=== PATIENT | female | born 1940 | race Caucasian/White ===

== ENCOUNTER → 2024-01-24 10:46 | Outpatient (REF) | payer MEDICARE, OTHER, SELFPAY | LOC: RAD 10:46 | PROVIDERS: ATTENDING PHYSICIAN Surgery Vascular Surgery; FAMILY PHYSICIAN Nurse Practitioner Adult Health | DX: I77.9 Disorder of arteries and arterioles, unspecified (principal) | CPT/HCPCS: 93922; 93925 ==

== ENCOUNTER → 2024-01-31 12:44 | Outpatient (REF) | payer MEDICARE, OTHER, SELFPAY | LOC: DHCBS MAIN 12:44 | PROVIDERS: ATTENDING PHYSICIAN Internal Medicine Cardiovascular Disease; FAMILY PHYSICIAN Nurse Practitioner Adult Health | DX: I25.10 Atherosclerotic heart disease of native coronary artery without angina pectoris (principal); I25.5 Ischemic cardiomyopathy | CPT/HCPCS: 93306 ==

== ENCOUNTER → 2024-08-15 13:47 | Outpatient (REF) | payer MEDICARE, OTHER, SELFPAY | LOC: RAD 13:47 | PROVIDERS: ATTENDING PHYSICIAN Surgery Vascular Surgery; FAMILY PHYSICIAN Nurse Practitioner Adult Health | DX: I77.9 Disorder of arteries and arterioles, unspecified (principal) | CPT/HCPCS: 93922; 93925 ==

== ENCOUNTER → 2025-03-05 10:47 | Outpatient (REF) | payer MEDICARE, OTHER, SELFPAY | LOC: RAD 10:47 | PROVIDERS: ATTENDING PHYSICIAN Surgery Vascular Surgery; FAMILY PHYSICIAN Nurse Practitioner | DX: I65.23 Occlusion and stenosis of bilateral carotid arteries (principal); I73.9 Peripheral vascular disease, unspecified | CPT/HCPCS: 93880; 93922 ==

== ENCOUNTER → 2025-09-17 10:59 | Outpatient (REF) | payer MEDICARE, OTHER, SELFPAY | LOC: RAD 10:59 | PROVIDERS: ATTENDING PHYSICIAN Surgery Vascular Surgery; FAMILY PHYSICIAN Nurse Practitioner | DX: I73.9 Peripheral vascular disease, unspecified (principal); I65.23 Occlusion and stenosis of bilateral carotid arteries | CPT/HCPCS: 93922 ==

== ENCOUNTER 2025-10-06 21:06 | Emergency (ER) | payer MEDICARE, OTHER, SELFPAY ==
[2025-10-06 21:10] VITALS: BP 173/92
[2025-10-06 21:30] LABS: Hematocrit 39.7 % (37.0-47.0); Hemoglobin 12.9 g/dL (12.0-16.0); Mean Corp Hgb Conc. 32.5 g/dL (33.0-37.0); Mean Corpuscular Volume 92.3 fL (81.0-99.0); Nucleated Red Blood Cells % 0 %; Platelet Count 282 10^3/uL (130-400); Red Cell Dist. Width 13.7 % (11.5-14.5)
[2025-10-06 21:43] LABS: INR 0.98; PT 13.1 Sec (11.4-14.6)
[2025-10-06 21:44] LABS: APTT 32.2 Sec (23.4-35.0)
[2025-10-06 21:47] LABS: ALT (SGPT) 15 U/L (0-35); AST (SGOT) 23 U/L (14-36); Albumin 4.2 g/dl (3.5-5.0); Alkaline Phosphatase 88 U/L (38-126); Blood Urea Nitrogen 30 mg/dl (7-17); Calcium 9.5 mg/dl (8.4-10.2); Carbon Dioxide 31 mmol/L (22-30); Chloride 99 mmol/L (98-107); Glucose 145 mg/dl (70-99); Potassium 4.7 mmol/L (3.5-5.1); Sodium 135 mmol/L (135-145); Total Protein 7.5 g/dl (6.3-8.2); eGFR 49.55
[2025-10-06 22:20] VITALS: BP 127/76
[2025-10-06 23:00] VITALS: BP 141/56; BMI 29.4
--- NOTE | 2025-10-06 23:04 | ED.GENMED ---
History of Present Illness
<Pam Booker MD, Resident - Last Filed: 10/07/25 01:40>
General
Chief Complaint: Vomiting Blood
Source: patient and family
Exam Limitations: none
Time Seen by Provider: 10/06/25 23:03
Nursing documentation reviewed up to this point in time: agreed with
History of Present Illness
History of Present Illness:
84-year-old F with a history of CAD ([place] x 2, s/p stenting), CVA (on Plavix, aspirin), bilateral lower extremity PAD, and diverticulitis who presents with coughing up blood this evening.
Per patient, she was relaxing in bed today around 8 PM when she felt the urge to cough. She coughed up a clot of blood, tissue had bright red blood on it. This happened 4 times, then she called her daughter and they came to the ED. On the drive
here, the patient had minimal coughing with some red speckling on the tissue, and her last episode of coughing with blood was today during EKG and intake in the ED. States that there was some bright red speckling on tissue at that point in time.
While she was coughing at home, patient had a sensation of tightness/discomfort in her neck that felt like she was straining. She also endorses a sensation of straining/tightness and a sore pain in her lower abdomen. No burning epigastric pain.
Patient denies any pain in her chest. Denies any trouble breathing. No history of asthma or GERD, not taking any PPIs. Patient endorses a recent cold for the last week, during which she had rhinorrhea and malaise. However, she did not have
significant coughing during this time. Denies any nausea/vomiting. Denies any diarrhea/constipation, denies any blood in stool. Patient is on Plavix and aspirin, which she takes daily. Denies any recent changes to diet, denies any changes to
medications. Was on antibiotics about 2 months ago for recurrent UTIs. Denies any recent swelling of lower extremities.
Past History
<Pam Booker MD, Resident - Last Filed: 10/07/25 01:40>
Past History
ED Past Medical History: CAD, HTN, Hypercholesterolemia, [place] (X 2), Hypothyroidism and Other (TIA, arthritis, cataracts, GI bleeding lower. UTI, Anemia, )
ED Past Surgical History: Cardiac (Stents X 2), (X 2) and Other (Bilateral carotid endarterectomy, hernia repair, cataracts)
Social History
Tobacco: Non-smoker
Alcohol: None
Drug: None
Personal:
Living: alone
Employment: Retired
Family History
Family History: CAD
Review of Systems
<Pam Booker MD, Resident - Last Filed: 10/07/25 01:40>
Review of Systems
All Other Systems: ROS reviewed and negative except as documented in HPI and ROS
Constitutional: Reports no symptoms
EENT: Reports sore throat and runny nose
Respiratory: Reports cough
Cardiac: Reports no symptoms
ABD/GI: Reports abdominal pain
: Reports no symptoms
Musculoskeletal: Reports no symptoms
Skin: Reports no symptoms
Neurological: Reports no symptoms
Psychiatric: Reports no symptoms
Phy Exam
<Pam Booker MD, Resident - Last Filed: 10/07/25 01:40>
General Physical Exam
General Presentation: well appearing
General age: appears stated age
General Skin: warm and dry
General Habitus: normal
General Mental: alert
General Hydration: appears well hydrated
ENT Exam
ENT Exam: pharynx normal (No visible excoriations, sources of bleeding; no tonsillitis or erythema), neck supple (No pain to palpation over anterior lateral neck), normocephalic and other (No cervical lymphadenopathy)
Cardiovascular Exam
Cardiovascular Exam: regular rate/rhythm and no edema
Heart Sounds: normal
Pulmonary Exam
Pulmonary Exam: lungs clear, no respiratory distress, no crackles and no wheezing
Gastrointestinal Exam
Gastrointestinal Exam: soft, non distended and tender (Tenderness to palpation in left lower quadrant, patient states that this has been there for a while)
Neurological Exam
Neurological Exam: alert and speech normal
Musculoskeletal Exam
Musculoskeletal Exam: no edema
Skin Exam
Skin Exam: normal color and warm/dry
Psychiatric Exam
Psychiatric Exam: normal mood/affect
Course
<Pam Booker MD, Resident - Last Filed: 10/07/25 01:40>
Orders/Labs/Results
Orders:
Orders
10/06/25 21:12
Electrocardiogram (*1) Urgent
Reason for Study: Vertigo / Dizzy
10/06/25 21:13
EKG- Treatment ONCE
10/06/25 21:18
Type+Screen Urgent
Complete Blood Count/With Diff Urgent
Comprehensive Metabolic Panel Urgent
PT/INR [Prothrombin Time] Urgent
Is patient on Coumadin/Warfarin?: No
Comment: [email or web address]
PTT Urgent
10/06/25 23:40
CT Chest PE Study Urgent
Comment:
Reason For Exam: hemoptysis
Abnormal Lab Results
10/06/25
21:18
MCHC 32.5 L g/dL
(33.0-37.0)
Absolute Monos (auto) 0.7 H 10^3/uL
(0.1-0.6)
Carbon Dioxide 31 H mmol/L
(22-30)
BUN 30 H mg/dl
(7-17)
Creatinine 1.1 H mg/dL
(0.6-1.0)
Glucose 145 H mg/dl
(70-99)
10/06/25 21:18
10/06/25 21:18
Vital Signs
Initial and Last Documented VS:
Initial Vital Signs
Temp Pulse Resp BP Pulse Ox
97.7 F 101 16 173/92 95
10/06/25 21:10 10/06/25 21:10 10/06/25 21:10 10/06/25 21:10 10/06/25 21:10
Last Documented Vital Signs
Temp Pulse Resp BP Pulse Ox
97.7 F 84 21 141/56 95
10/06/25 21:10 10/06/25 23:00 10/06/25 23:00 10/06/25 23:00 10/06/25 23:07
<Iliana Caicedo, DO - Last Filed: 10/07/25 01:41>
Orders/Labs/Results
Orders:
Orders
10/06/25 21:12
Electrocardiogram (*1) Urgent
Reason for Study: Vertigo / Dizzy
10/06/25 21:13
EKG- Treatment ONCE
10/06/25 21:18
Type+Screen Urgent
Complete Blood Count/With Diff Urgent
Comprehensive Metabolic Panel Urgent
PT/INR [Prothrombin Time] Urgent
Is patient on Coumadin/Warfarin?: No
Comment: [email or web address]
PTT Urgent
10/06/25 23:40
CT Chest PE Study Urgent
Comment:
Reason For Exam: hemoptysis
Abnormal Lab Results
10/06/25
21:18
MCHC 32.5 L g/dL
(33.0-37.0)
Absolute Monos (auto) 0.7 H 10^3/uL
(0.1-0.6)
Carbon Dioxide 31 H mmol/L
(22-30)
BUN 30 H mg/dl
(7-17)
Creatinine 1.1 H mg/dL
(0.6-1.0)
Glucose 145 H mg/dl
(70-99)
10/06/25 21:18
10/06/25 21:18
Vital Signs
Initial and Last Documented VS:
Initial Vital Signs
Temp Pulse Resp BP Pulse Ox
97.7 F 101 16 173/92 95
10/06/25 21:10 10/06/25 21:10 10/06/25 21:10 10/06/25 21:10 10/06/25 21:10
Last Documented Vital Signs
Temp Pulse Resp BP Pulse Ox
97.7 F 84 21 141/56 95
10/06/25 21:10 10/06/25 23:00 10/06/25 23:00 10/06/25 23:00 10/06/25 23:07
<Pam Booker MD, Resident - Last Filed: 10/07/25 01:40>
MDM/Problems Addressed
Differential Diagnosis Includes:
DDx:
Likely superficial esophageal abrasion/erosion in the setting of recent URI/rhinorrhea/inflammation and recent dry weather
PE remains in the differential for hemoptysis, although unlikely given lack of lower extremity swelling, lack of recent prolonged sedentary period, lack of shortness of breath, lack of tachycardia, O2 sat
Low concern for any esophageal perforation, low concern for active ongoing UGI bleed
MDM/Problems Addressed:
- CBC, CMP
- EKG
- CT PE
<Pam Booker MD, Resident - Last Filed: 10/07/25 01:40>
*Pulse Oximetry
SaO2: 95
Oxygen Mode of Delivery: Room air
Patient hypoxic: no
*Critical Care Note
Total Time (30-74mins, 75-104mins- exclusive of procedures): Not Applicable
<Pam Booker MD, Resident - Last Filed: 10/07/25 01:40>
Update Note
Update Note:
EKG w RBBB, largely unchanged from prior
12:25am
Notified by RN that patient began coughing up more blood after getting back from CT scan. Went to check on patient, patient well-appearing and stable. Coughing episode had subsided. Patient with bucket full of tissues beside her. Tissues were
not soaked with blood, each had a 1 to 2 cm spot of bright red blood on them. No clots or free fluid visualized in the bucket.
1:[address] PE without evidence of clot
Etiology likely inflammation in the setting of recent cold, patient can be discharged home with precautions and supportive care
ED Attending Note
<Pam Booker MD, Resident - Last Filed: 10/07/25 01:40>
-
Portions of this chart may have been created with voice recognition software.� Occasional wrong word or��sound alike� substitutions may have occurred due to the inherent limitations of voice recognition software.
<Iliana Caicedo DO - Last Filed: 10/07/25 01:41>
ED Attending Note
Patient seen and examined by attending physician: Yes
I performed the substantive portion of visit, reviewed & personally made and approve the management plan that is documented in note by myself or THALIA.: Yes
I performed a history and physical exam of patient and discussed management with resident, I reviewed resident's note and agree with documented findings and plan of care.: Yes
ED Attending Note:
84-year-old female with prior history of CVA, CAD status post 4 stents on Plavix and aspirin, peripheral vascular disease presenting to the emergency department with concern for hemoptysis patient notes that prior to arrival, she was lying in bed
and had about 4 episodes of coughing with production of bright red blood. Denies vomiting component. Reports that she has not been coughing. Last week did have a URI, with some congestion, throat irritation, mild cough. Denies any present
dyspnea or chest pain. Denies abdominal pain or GI complaints. Reports that she recently saw her vascular surgeon a few weeks ago, notes stable peripheral vascular disease. Vital signs are significant for hypertension and mild tachycardia.
On exam, patient is resting comfortably, no acute distress. Reports that the symptoms have improved since arrival to the hospital. Unremarkable cardiac and pulmonary exam. Patient nontoxic. Suspect possible bronchial irritation. Lower suspicion
for PE. However, in the setting of hemoptysis, will obtain CT chest for rule out. EKG obtained on arrival, nonischemic. Labs obtained prior to my assessment, normal hemoglobin. Will continue to monitor
00:30 - Upon return from CT, patient did have episode of hemoptysis, small production of blood. Remains stable and comfortable
01:40 - CT negative for acute process. On reassessment patient is resting comfortably with stable vital signs. At this time again without concern for serious pathology to patient's symptoms. Feel stable for discharge. Advised close follow-up
with her primary care doctor and monitoring for worsening hemoptysis or any development of hematemesis. Return precautions discussed with patient and daughter verbalized understanding
Discharge Plan
Departure
Patient Disposition: Home (Routine Discharge)
Date of Disposition: 10/07/25
Time of Disposition: 01:36
Patient with high blood pressure during this ER visit?: No
Condition: Good
Covid-19: Not Applicable
Discharge Problem:
Cough with hemoptysis
Prescriptions:
No Action
aspirin 81 MG tablet,delayed release (DR/EC)
81 mg PO DAILY
carvedilol 6.25 MG tablet
6.25 mg PO BID
clopidogrel 75 MG tablet
75 mg PO DAILY
metformin 500 mg Tablet
500 mg PO QPM
lisinopril 10 mg Tablet
10 mg PO DAILY
furosemide 20 mg Tablet
10 mg PO DAILY
Repatha Syringe
1 dose IM Q2W
acetaminophen [Tylenol] 325 mg Tablet
650 mg PO Q6H PRN (Reason: joint pain)
cholecalciferol (vitamin D3) [Vitamin D3] 50 mcg (2,000 unit) Capsule
50 mcg PO DAILY
magnesium chelate, malate 125 mg magnesium Capsule
180 mg PO DAILY
amoxicillin-pot clavulanate 875-125 mg tablet
1 tab PO BID Qty: 14 0RF
Referrals:
NONE,* [Active, Internal Medicine]
Activity Restrictions/Additional Instructions:
You were seen in the ED today for coughing with blood. Your blood testing did not show any anemia from blood loss. A CT scan of your lungs did not find anything concerning for a blood clot in the lungs, an abnormality in blood vessels in the
lungs, or any type of mass that could be causing bleeding. The amount of blood in your cough is likely due to inflammation of the airways/mucous membranes following your recent cold, likely viral. This will probably resolve on its own in time.
Try to keep you in your bedroom more humidified, not dry. You should follow-up with your primary care provider in 1 to 2 weeks.
Please return to the ED if you experience a significant increase in volume of blood that you are coughing up, have severe chest pain, have lightheadedness or any episodes of fainting.
Interventions
Interventions:
*Risk Screen - Suicide Last Done: 10/06/25 21:12
*General Assessment Last Done: 10/06/25 23:00
*Neglect/Abuse Screening Last Done: 10/06/25 21:12
*ED COVID-19 Vaccine History Last Done: 10/06/25 23:00
*ED Influenza Vaccine History Last Done: 10/06/25 23:00
[facility] Fall Risk Assessment Tool Last Done: 10/06/25 23:00
MD-Kxeulw-Arlvvbqeoh Assessment Last Done: 10/06/25 23:07
ED- Cardiac Assessment Last Done: 10/06/25 23:00
ED- Pulmonary Assessment Last Done: 10/06/25 23:00
Discharge Date and Time
Print Language: SETSWANA
[2025-10-07] VITALS: BP 154/61
== END 2025-10-07 02:28 | disposition home or self-care (01) ==
LOC: EMR 21:06
PROVIDERS: Emergency Medicine; EMERGENCY PHYSICIAN Student in an Organized Health Care Education/Training Program
DX: R04.2 Hemoptysis (principal); I45.10 Unspecified right bundle-branch block; R00.0 Tachycardia, unspecified; I25.10 Atherosclerotic heart disease of native coronary artery without angina pectoris; I73.9 Peripheral vascular disease, unspecified; I10 Essential (primary) hypertension; E78.00 Pure hypercholesterolemia, unspecified; I25.2 Old myocardial infarction; E03.9 Hypothyroidism, unspecified; M19.90 Unspecified osteoarthritis, unspecified site; Z79.02 Long term (current) use of antithrombotics/antiplatelets; Z79.82 Long term (current) use of aspirin; Z95.5 Presence of coronary angioplasty implant and graft; Z86.73 Personal history of transient ischemic attack (TIA), and cerebral infarction without residual deficits; Z82.49 Family history of ischemic heart disease and other diseases of the circulatory system
CPT/HCPCS: 99284; 71275; 80053; 85025; 85610; 85730; 86850; 86900; 86901; 93005; Q9967

== ENCOUNTER 2025-10-07 09:08 | Inpatient (IN) | payer MEDICARE, SELFPAY ==
[2025-10-07] VITALS (19 sets, daily range): BP systolic 106–161; BP diastolic 56–92; PULSE 84–98; BMI 29.6
--- NOTE | 2025-10-07 07:27 | ED.GENMED ---
History of Present Illness
<Biju Quinn PA-C - Last Filed: 10/07/25 10:12>
General
Chief Complaint: Vomiting Blood
Source: patient and family
Time Seen by Provider: 10/07/25 07:10
History of Present Illness
History of Present Illness:
84-year-old female with past medical history of CVA, CAD status post 2 previous MIs, previous lower GI bleeding presenting back to the emergency department after being evaluated overnight for reported hemoptysis, had a negative workup including
normal labs and CTA PE study, went home and drank a little bit of water and shortly after drinking the water has had persistent hematemesis which is what prompted daughter to bring patient back to the ER. Patient reports there is no pain with this.
She notes that she did have a bowel movement and that it appeared normal in color when she wiped. She denies any current pain, current nausea, shortness of breath, lightheadedness, dizziness, weakness or any other concerns. Patient does take
Plavix. No other concerns at this time
Past History
<Biju Quinn PA-C - Last Filed: 10/07/25 10:12>
Past History
ED Past Medical History: CAD, HTN, Hypercholesterolemia, [place] (X 2), Hypothyroidism and Other (TIA, arthritis, cataracts, GI bleeding lower. UTI, Anemia, )
ED Past Surgical History: Cardiac (Stents X 2), (X 2) and Other (Bilateral carotid endarterectomy, hernia repair, cataracts)
Social History
Tobacco: Non-smoker
Alcohol: None
Drug: None
Personal:
Living: alone
Employment: Retired
Family History
Family History: CAD
Review of Systems
<Biju Quinn PA-C - Last Filed: 10/07/25 10:12>
Review of Systems
All Other Systems: ROS reviewed and negative except as documented in HPI and ROS
Phy Exam
<Biju Quinn PA-C - Last Filed: 10/07/25 10:12>
Physical Exam
Physical Exam:
GENERAL: Alert , in no apparent distress
HEAD: Normocephalic atraumatic
EYE: conjunctiva clear
NECK: Supple
ENT: o/p clr, mmm.
CARDIAC: Regular rate and rhythm
LUNGS: Clear breath sounds bilaterally, no acute respiratory distress, no wheezes/rales/rhonchi
ABDOMEN: Soft, nontender, nondistended
RECTAL EXAM: Chaperoned by ED RN Katja: Light brown stool, heme-negative
NEUROLOGICAL: Alert and oriented
SKIN: Warm and dry, skin intact.
MUSCULOSKELETAL: well perfused.
PSYCH: Normal and appropriate interaction.
Scores
<Biju Quinn PA-C - Last Filed: 10/07/25 10:12>
Heart Failure Risk
Heart Failure Risk Score: Not Applicable
Heart Score for Chest Pain Patients
STEMI patient?: Not applicable
Withdrawal Assessment of Alcohol
Withdrawal Assessment Completed?: Not applicable
Course
<Biju Quinn PA-C - Last Filed: 10/07/25 10:12>
Orders/Labs/Results
Orders:
Orders
10/07/25 Breakfast
NPO
Allow oral meds: No
Allow clear liquids: No
NPO with Ice Chips: Yes
10/07/25 07:10
Pantoprazole [Protonix IV] 80 mg IV NOW STA
10/07/25 07:29
Complete Blood Count/With Diff Urgent
Comprehensive Metabolic Panel Urgent
10/07/25 08:06
Admit/Transfer Patient As Directed
Co-Sign Provider:
Level of Care: Inpatient admission
Assign to:: Medical/Surgical
Physician / Group: hospitalist
Diagnosis: GI bleed
Reason for Hospitalization: GI bleed
Expected length of stay greater than two midnights?: Yes
ELOS- Estimated Length of Stay in days: 3
I certify the patient meets the requirements for IP care: Yes
10/07/25 08:07
PRN Pain Medication Management As Directed
May give lesser potent ordered pain med per pt: Yes
preference::
Protocol:: Medication orders for pain may be administered in a
manner that supports deferring to patient preference
when the pt is:
- Requesting an ordered lesser potent pain medication.
Least to most potent pain medications are defined
as: acetaminophen < NSAID < tramadol < opioids
(morphine, oxycodone, hydromorphone).
- Requesting a lesser dose of the same medication IF
ORDERED.
- Requesting a less intrusive route of administration
if both routes are prescribed by the provider (PO <
IV).
10/07/25 08:08
Code Status As Directed
Resuscitation Status: Full Code
10/07/25 08:50
GASTROINTESTINAL CONSULT Routine
Consulting Provider: Naseem Daily
Was physician already notified: Yes
10/07/25 13:30
H&H Q6H
10/07/25 19:30
H&H Q6H
10/08/25 01:30
H&H Q6H
Abnormal Lab Results
10/07/25
07:29
RBC 4.08 L 10^6/uL
(4.20-5.40)
MCHC 32.5 L g/dL
(33.0-37.0)
Absolute Monos (auto) 0.7 H 10^3/uL
(0.1-0.6)
Lymphocytes % 16.5 L %
(20.5-51.1)
BUN 27 H mg/dl
(7-17)
Glucose 124 H mg/dl
(70-99)
10/07/25 08:50
10/07/25 07:29
Vital Signs
Initial and Last Documented VS:
Initial Vital Signs
Temp Pulse Resp BP Pulse Ox
97.9 F 90 22 152/68 96
10/07/25 06:45 10/07/25 06:45 10/07/25 06:45 10/07/25 06:45 10/07/25 06:45
Last Documented Vital Signs
Temp Pulse Resp BP Pulse Ox
97.9 F 84 24 139/65 96
10/07/25 06:45 10/07/25 09:15 10/07/25 09:15 10/07/25 09:00 10/07/25 07:32
<Albert Shrestha, DO - Last Filed: 10/07/25 08:07>
Orders/Labs/Results
Orders:
Orders
10/07/25 Breakfast
NPO
Allow oral meds: No
Allow clear liquids: No
NPO with Ice Chips: Yes
10/07/25 07:10
Pantoprazole [Protonix IV] 80 mg IV NOW STA
10/07/25 07:29
Complete Blood Count/With Diff Urgent
Comprehensive Metabolic Panel Urgent
10/07/25 08:06
Admit/Transfer Patient As Directed
Co-Sign Provider:
Level of Care: Inpatient admission
Assign to:: Medical/Surgical
Physician / Group: hospitalist
Diagnosis: GI bleed
Reason for Hospitalization: GI bleed
Expected length of stay greater than two midnights?: Yes
ELOS- Estimated Length of Stay in days: 3
I certify the patient meets the requirements for IP care: Yes
10/07/25 08:07
PRN Pain Medication Management As Directed
May give lesser potent ordered pain med per pt: Yes
preference::
Protocol:: Medication orders for pain may be administered in a
manner that supports deferring to patient preference
when the pt is:
- Requesting an ordered lesser potent pain medication.
Least to most potent pain medications are defined
as: acetaminophen < NSAID < tramadol < opioids
(morphine, oxycodone, hydromorphone).
- Requesting a lesser dose of the same medication IF
ORDERED.
- Requesting a less intrusive route of administration
if both routes are prescribed by the provider (PO <
IV).
10/07/25 08:08
Code Status As Directed
Resuscitation Status: Full Code
10/07/25 08:50
GASTROINTESTINAL CONSULT Routine
Consulting Provider: Naseem Daily
Was physician already notified: Yes
10/07/25 13:30
H&H Q6H
10/07/25 19:30
H&H Q6H
10/08/25 01:30
H&H Q6H
Abnormal Lab Results
10/07/25
07:29
RBC 4.08 L 10^6/uL
(4.20-5.40)
MCHC 32.5 L g/dL
(33.0-37.0)
Absolute Monos (auto) 0.7 H 10^3/uL
(0.1-0.6)
Lymphocytes % 16.5 L %
(20.5-51.1)
BUN 27 H mg/dl
(7-17)
Glucose 124 H mg/dl
(70-99)
10/07/25 08:50
10/07/25 07:29
Vital Signs
Initial and Last Documented VS:
Initial Vital Signs
Temp Pulse Resp BP Pulse Ox
97.9 F 90 22 152/68 96
10/07/25 06:45 10/07/25 06:45 10/07/25 06:45 10/07/25 06:45 10/07/25 06:45
Last Documented Vital Signs
Temp Pulse Resp BP Pulse Ox
97.9 F 84 24 139/65 96
10/07/25 06:45 10/07/25 09:15 10/07/25 09:15 10/07/25 09:00 10/07/25 07:32
<Biju Quinn PA-C - Last Filed: 10/07/25 10:12>
MDM/Problems Addressed
Differential Diagnosis Includes:
Gastric ulcer/peptic ulcer disease
Variceal bleeding
Gastritis
Given CTA done last night I do not have concern for pulmonary emboli
There was no sign of pneumonia on the CT of the chest
Anemia
Malignancy
MDM/Problems Addressed:
84-year-old female presenting to the ER after being evaluated last night for hemoptysis, presents back to the ER now for reported hematemesis. She is hemodynamically stable. On Plavix. Will repeat H&H to assess for possible drop in her
hemoglobin. Stool was heme-negative. At this time unclear etiology for pulmonary versus GI source given the reported hemoptysis earlier and now hematemesis. Will start the patient on Protonix bolus. Plan to admit to hospitalist team
Chronic conditions affecting care: CAD and Neurological disorder
<Biju Quinn PA-C - Last Filed: 10/07/25 10:12>
*Pulse Oximetry
SaO2: 96
Oxygen Mode of Delivery: Room air
Patient hypoxic: no
*Area Supervisor Interpretation
Rate: normal
Heart Rate: 85
Rhythm: sinus
*Critical Care Note
Total Time (30-74mins, 75-104mins- exclusive of procedures): Not Applicable
Data Reviewed
Review of Other/Old Records Reveals: Labs, Records and Radiology Studies
<Biju Quinn PA-C - Last Filed: 10/07/25 10:12>
Patient Management
Discussion with other providers: Hospitalist
Escalation/DeEscalation of care consider admission/obs:
Hospitalist team accepts for continued evaluation and treatment
ED Attending Note
<IRINA Pichardo-Keegan - Last Filed: 10/07/25 10:12>
-
Portions of this chart may have been created with voice recognition software.� Occasional wrong word or��sound alike� substitutions may have occurred due to the inherent limitations of voice recognition software.
<Albert Shrestha DO - Last Filed: 10/07/25 08:07>
ED Attending Note
Patient seen and examined by attending physician: Yes
I performed the substantive portion of visit, reviewed & personally made and approve the management plan that is documented in note by myself or THALIA.: Yes
ED Attending Note:
Seen with resident examined independently second visit less than a few hours initially seen for hemoptysis for workup discharged home now appears to have hematemesis hemodynamically stable will admit
Discharge Plan
Departure
Patient Disposition: Admit
Date of Disposition: 10/07/25
Time of Disposition: 07:27
Presentation/result/management discussed w/ accepting MD/DO: Hospitalist
Discharge Problem:
Hematemesis
Interventions
Interventions:
*Risk Screen - Suicide Last Done: 10/07/25 06:45
*General Assessment Last Done: 10/07/25 07:37
*Neglect/Abuse Screening Last Done: 10/07/25 06:45
*ED COVID-19 Vaccine History Last Done: 10/07/25 07:37
*ED Influenza Vaccine History Last Done: 10/07/25 07:37
[facility] Fall Risk Assessment Tool Last Done: 10/07/25 07:36
TH-Kgikrq-Ujjgtuamnd Assessment Last Done: 10/07/25 07:38
ED- Cardiac Assessment Last Done: 10/07/25 07:38
ED- Pulmonary Assessment Last Done: 10/07/25 07:38
[2025-10-07] MEDS: PROTONIX IV 80 MG IV (07:34)
[2025-10-07 07:35] LABS: Hematocrit 38.5 % (37.0-47.0); Hemoglobin 12.5 g/dL (12.0-16.0); Mean Corp Hgb Conc. 32.5 g/dL (33.0-37.0); Mean Corpuscular Volume 94.4 fL (81.0-99.0); Nucleated Red Blood Cells % 0 %; Platelet Count 263 10^3/uL (130-400); Red Cell Dist. Width 13.5 % (11.5-14.5)
[2025-10-07 07:56] LABS: ALT (SGPT) 15 U/L (0-35); AST (SGOT) 22 U/L (14-36); Albumin 4.2 g/dl (3.5-5.0); Alkaline Phosphatase 96 U/L (38-126); Blood Urea Nitrogen 27 mg/dl (7-17); Calcium 9.1 mg/dl (8.4-10.2); Carbon Dioxide 30 mmol/L (22-30); Chloride 100 mmol/L (98-107); Estimated Creatinine Clearance 46 ml/min; Glucose 124 mg/dl (70-99); Potassium 4.7 mmol/L (3.5-5.1); Sodium 136 mmol/L (135-145); Total Protein 7.2 g/dl (6.3-8.2); eGFR 55.55
--- NOTE | 2025-10-07 08:15 | HPS.HSE ---
Family Physician
-
Family Physician: Emily Herrera
Chief Complaint
-
GI bleed
History of Present Illness
84-year-old female with history of CAD x2, PAD, HFpEF, hyperlipidemia, hypertension, presents with hematemesis. She was seen in the ED last night for coughing and spitting up blood. At the time she was hemodynamically stable and discharged home.
However upon returning home around 5:30 AM she initially coughed and then threw up blood with big clots. She reports these episodes multiple times with the course of 1 hour describing the expel blood as big clots and estimated volume of the size of
a bowl of cereal. She denies syncope, headache or dizziness. She reports of abdominal pain while vomiting blood. She denies rectal bleeding, chest pain, shortness of breath, palpitations, weakness. Patient is on aspirin and Plavix. She denies
using NSAIDs or alcohol.
On arrival to the ED, she is hemodynamically stable. Her hemoglobin is 12.5 consistent with her baseline. A CTA chest was performed and is negative for PE. She is not actively bleeding.
Medical History
Past Medical History
Past Medical History: Reports Other (CAD, HTN, Hypercholesterolemia, [place] (X 2), Hypothyroidism and Other (TIA, arthritis, cataracts, GI bleeding lower. UTI, Anemia, ))
Past Surgical History: Reports Other (Cardiac (Stents X 2), (X 2) and Other (Bilateral carotid endarterectomy, hernia repair, cataracts))
Social History
Tobacco: Non-smoker
Alcohol: None
Drug: None
Personal: Single
Living: Alone
Employment: Retired
Family History
Family History: Not pertinent
Allergies / Home Medications
Allergies reflects when Allergies were last updated in [facility].
Home Medications with original date entered in [facility]
Allergy/Medication List:
Allergies
Allergy/AdvReac Type Severity Reaction Status Date / Time
Gjjmeql-DBM-RoL Reductase Allergy leg pain, Verified 10/07/25 06:48
Inhibitor (Vlhojkc-Cus-Nne upset
Reductase Inhibitor) stomach,
diarrhea
Home Medications
aspirin 81 mg tablet,delayed release 81 mg PO DAILY Heart disease 06/07/16
carvedilol 6.25 mg tablet 6.25 mg PO BID Blood pressure 04/06/20
clopidogrel 75 mg tablet 75 mg PO DAILY Heart disease 04/06/20
Repatha Syringe 1 dose IM Q2W 12/19/22
furosemide 20 mg tablet 10 mg PO DAILY 12/19/22
lisinopril 10 mg tablet 5 mg PO DAILY 12/19/22
acetaminophen 325 mg tablet (Tylenol) 650 mg PO Q6H PRN joint pain 12/21/22
cholecalciferol (vitamin D3) 50 mcg (2,000 unit) capsule (Vitamin D3) 50 mcg PO DAILY 12/21/22
magnesium chelate, malate 180 mg PO DAILY 12/21/22
Artery Strong 1 tab PO DAILY 10/07/25
Curamin Pain Relief 1 tab PO DAILY 10/07/25
lidocaine 3 % topical cream 1 applic topical DAILY 10/07/25
multivitamin 1 tab PO DAILY 10/07/25
Review of Systems
-
History Source: Patient
A 12 point ROS was completed and negative except as noted: Yes
Physical Exam
Vital Signs
Vital Signs
Temp Pulse Resp BP Pulse Ox
97.9 F 79 17 133/61 96
10/07/25 06:45 10/07/25 07:38 10/07/25 07:38 10/07/25 07:38 10/07/25 07:32
Physical Exam
General: No Apparent Distress, Comfortable and Conversant
HEENT: NormoCephalic and Anicteric
Respiratory: Clear
Cardiac: S1/S2 and Regular Rhythm
GI: Soft, Non Distended, Normal Bowel Sounds and Tender (mild )
Musculoskeletal: No Edema
Neuro: AO x 3
Psych: Calm
Laboratory Results
-
10/07/25 07:29
10/07/25 07:29
Laboratory Results
Total Bilirubin 0.4 mg/dl (0.2-1.3) 10/07/25 07:29
AST 22 U/L (14-36) 10/07/25 07:29
ALT 15 U/L (0-35) 10/07/25 07:29
Alkaline Phosphatase 96 U/L (38-126) 10/07/25 07:29
Data Reviewed
-
CT Scan: Report Reviewed by me and Discussed with Physician
Lab Data: Labs Reviewed by me and Discussed with Physician
Impression/Plan
-
IMPRESSION:
Hematemesis
History of ASCVD(CAD, PAD)
Essential hypertension
Hyperlipidemia
PLAN:
Hematemesis
Initial episode spitting/coughing of blood which progressed to vomiting blood with big clots.
Differential diagnosis: Rocio-Mar tear, tear, Boerhaave tear, PUD, medication use
Patient is hemodynamically stable
HB 12.5 at baseline
s/p IV 80 mg Protonix in ED
Start IV Protonix 40 mg twice daily
IV fluids @ 100 cc/hr
IV Zofran as needed
NPO.
Consult GI for possible scope.
Monitor H&H closely
Hold aspirin and Plavix
History of ASCVD( CAD, PAD)
Hold aspirin and Plavix
Continue carvedilol and furosemide
Essential hypertension
Continue lisinopril and carvedilol
Hyperlipidemia
Continue Repatha
Full code
SCD
NPO
--- NOTE | 2025-10-07 09:23 | CON.GI ---
Consultation
-
Date/Time Consultation Performed: 10/07/25
Performing Provider: Hari Daily MD
Reason for Consultation: hematemesis
Medical History
Chief Complaint / HPI
Chief Complaint: hematemesis
History of Present Illness:
The patient is an 84-year-old female with past medical history as noted with hemoptysis. She reports coughing blood in the tissue on several occasions, sometimes clots the size of a quarter though never larger than this. She was having some left
lower quadrant discomfort and was relatively constipated yesterday, the better with defecation today. Yesterday she was having again episodes of hemoptysis. To me she denies any hematemesis and has not had any vomiting. She denies any other
abdominal pain or extraneous NSAIDs. Her bowel movement was brown, has been hemodynamically stable and hemoglobin is at baseline. CT scan yesterday did not show any obvious pulmonary pathology. She has a history of diverticular bleed in the past,
last colonoscopy in 2019. Currently she denies any chest pain or shortness of breath.
Past Medical History
Past Medical History: Other (Coronary artery disease, status post stent, status post OR, CEA, hypertension, high cholesterol, TIA, heart failure with preserved ejection fraction)
Past Surgical History: Other (, bilateral CEA, hernia repair)
Social History
Tobacco: Non-Smoker
Alcohol: None
Family History
Family History: Reviewed & Not Pertinent
Allergies / Home Medications
Allergy/AdvReac Type Severity Reaction Status Date / Time
Ffffzwp-FXP-XnV Reductase Allergy leg pain, Verified 10/07/25 06:48
Inhibitor (Ymoharx-Uxs-Fuv upset
Reductase Inhibitor) stomach,
diarrhea
�Medication �Instructions �Recorded
aspirin 81 mg tablet,delayed 81 mg PO DAILY Heart disease 06/07/16
release
carvedilol 6.25 mg tablet 6.25 mg PO BID Blood pressure 04/06/20
clopidogrel 75 mg tablet 75 mg PO DAILY Heart disease 04/06/20
Repatha Syringe 1 dose IM Q2W 12/19/22
furosemide 20 mg tablet 10 mg PO DAILY 12/19/22
lisinopril 10 mg tablet 5 mg PO DAILY 12/19/22
acetaminophen 325 mg tablet 650 mg PO Q6H PRN joint pain 12/21/22
(Tylenol)
cholecalciferol (vitamin D3) 50 50 mcg PO DAILY 12/21/22
mcg (2,000 unit) capsule (Vitamin
D3)
magnesium chelate, malate 180 mg PO DAILY 12/21/22
Artery Strong 1 tab PO DAILY 10/07/25
Curamin Pain Relief 1 tab PO DAILY 10/07/25
lidocaine 3 % topical cream 1 applic topical DAILY 10/07/25
multivitamin 1 tab PO DAILY 10/07/25
Review of Systems
-
All other systems: A 12 pt ROS was Negative except as stated above in HPI
Vital Signs
Temp Pulse Resp BP Pulse Ox
97.9 F 79 17 133/61 96
10/07/25 06:45 10/07/25 07:38 10/07/25 07:38 10/07/25 07:38 10/07/25 07:32
Physical Exam
Exam
General: NAD
HEENT: MMM, anicteric, no lymphadenopathy
Heart: Regular, no murmurs
Lungs: CTA bilaterally
Abdomen: normal bowel sounds, soft, no tenderness, no rebound or guarding, no masses, bruits or ascites
Extremeties: no edema
Skin: no rashes
Results
WBC 7.8 10^3/uL (4.8-10.8) 10/07/25 07:29
Hgb Cancelled 10/07/25 20:50
Hct Cancelled 10/07/25 20:50
MCV 94.4 fL (81.0-99.0) 10/07/25 07:29
Plt Count 263 10^3/uL (130-400) 10/07/25 07:
Absolute Neuts (auto) 5.7 10^3/uL (1.4-6.5) 10/07/25 07:
Sodium 136 mmol/L (135-145) 10/07/25 07:
Potassium 4.7 mmol/L (3.5-5.1) 10/07/25:
Chloride 100 mmol/L (98-107) 10/07/25:
Carbon Dioxide 30 mmol/L (22-30) 10/07/25:
BUN 27 mg/dl (7-17) H 10/07/25:
Creatinine 1.0 mg/dL (0.6-1.0) 10/07/25:
Calcium 9.1 mg/dl (8.4-10.2) 10/07/25:
Total Bilirubin 0.4 mg/dl (0.2-1.3) 10/07/25:
AST 22 U/L (14-36) 10/07/25:
ALT 15 U/L (0-35) 10/07/25:
Alkaline Phosphatase 96 U/L (38-126) 10/07/25:
Diagnostic Image Results:
chest CT:
IMPRESSION:
1. No evidence of pulmonary embolism or thoracic aortic dissection.
2. Respiratory motion artifact, grossly clear lungs.
3. Severe coronary arterial calcification. Please correlate with symptoms of and risk factors for coronary artery disease, with further workup as clinically appropriate.
Prior GI Procedures:
EGD:
Colonoscopy:
2020:
Impression: - Diverticulosis in the sigmoid colon and in the
descending colon.
- No specimens collected.
Assessment / Plan
-
1. Hemoptysis versus hematemesis: to me she reports only hemoptysis with really no emesis, only quarter sized episodes in the tissue. I think with no melena, stable hemoglobin hemodynamics significant upper GI bleeding seems much less likely.
Again cannot say 100% without doing endoscopy, and after discussion with her and her daughter will plan EGD today to assure no significant GI pathology. If negative would consider pulmonary evaluation for persistent hemoptysis.
-
-
Thank you for consultation and allowing me to participate in the patient's care. Please call the container maker GI physician during the after hours with any questions or concerns.
--- NOTE | 2025-10-07 11:24 | W.PN.UPDATE ---
Update Note
Progress Note Update
Patient underwent EGD, a small amount of blood was seen in the hypopharynx, mild Schatzki ring was noted at the gastroesophageal junction. No source of GI bleeding identified. Will consult pulmonology for symptoms consistent with hemoptysis.
--- NOTE | 2025-10-07 12:07 | CON.PUL ---
Consultation
Consultation Request
Date/Time Consultation Requested: 10/07/2025-12:15 PM
Date/Time Consultation Performed: 10/07/2025-12:30 PM
Requesting Provider: Hospitalist
Performing Provider: Dr. Ochoa
Reason for Consultation: Hemoptysis
Medical History
-
Chief Complaint: Hemoptysis
History of Present Illness:
84-year-old nonsmoking female with history of CAD, hypertension, hyperlipidemia, anemia, lower GI bleed, TIA, who initially presented with hematemesis versus hemoptysis evaluated in the emergency room yesterday and then went home and returned's
morning with a couple more episodes of hemoptysis-small amounts of what sounds like old blood-last episode 5:30 AM-underwent EGD without gastrointestinal source-pulmonary consulted for hemoptysis 10/07/25. She states that she does not feel chest
congestion, she's never had hematemesis before. She had an upper respiratory tract infection about 2 weeks ago with lots of vigorous coughing. She currently denies any chest pain, chest tightness, chest congestion, and does not have any hemoptysis
at this point. She has never smoked, never had any lung problems. She does not complain of any abdominal pain, leg swelling, or focal weakness.
Past Medical History
Past Medical History: None ( CAD/Stents. Hypertension. Hyperlipidemia. Hypothyroid. TIA. Osteoarthritis. Cataract. Lower GI bleed. UTIs. Anemia. . Bilateral CEA. Hernia repair.)
Social History
Tobacco: Non-smoker
Alcohol: None
Personal: Single
Occupational Exposures: No known asbestos exposure
Environmental Exposures: No known tuberculosis exposure
Family History
Family History: Reviewed & Not Pertinent
Allergies / Home Medications
Allergies
Allergy/AdvReac Type Severity Reaction Status Date / Time
Teqmxut-DRQ-DgL Reductase Allergy leg pain, Verified 10/07/25 06:48
Inhibitor (Aolszyg-Gxb-Ogo upset
Reductase Inhibitor) stomach,
diarrhea
Home Medications
�Medication �Instructions �Recorded �Confirmed �Last Taken �Type
aspirin 81 mg tablet,delayed 81 mg PO DAILY Heart disease 06/07/16 10/07/25 10/06/25 History
release
carvedilol 6.25 mg tablet 6.25 mg PO BID Blood pressure 04/06/20 10/07/25 10/06/25 History
clopidogrel 75 mg tablet 75 mg PO DAILY Heart disease 04/06/20 10/07/25 10/06/25 History
evolocumab 140 mg/mL subcutaneous 140 mg SC Q2W ##0 12/19/22 10/07/25 12/14/22 08:00 History
syringe (Repatha Syringe)
furosemide 20 mg tablet 10 mg PO DAILY 12/19/22 10/07/25 10/06/25 History
acetaminophen 325 mg tablet 650 mg PO Q6HPRN PRN mild pain 12/21/22 10/07/25 12/20/22 08:00 History
(Tylenol)
cholecalciferol (vitamin D3) 50 50 mcg PO DAILY 12/21/22 10/07/25 10/06/25 History
mcg (2,000 unit) capsule (Vitamin
D3)
magnesium chelate, malate 180 mg PO DAILY 12/21/22 10/07/25 10/06/25 History
lidocaine 3 % topical cream 1 applic topical DAILY b/l feet 10/07/25 10/07/25 10/06/25 History
lidocaine 4 % topical spray 1 ea topical DAILYPRN PRN b/l feet 10/07/25 10/07/25 10/06/25 History
lisinopril 5 mg tablet 5 mg PO DAILY 10/07/25 10/07/25 10/06/25 History
therapeutic multivitamin 1 tab PO DAILY 10/07/25 10/07/25 10/06/25 History
Review of Systems
-
Unable to Obtain full review of systems at this time due to: Other (Per HPI)
Vitals / Labs / Diagnostic Testing
Vital Signs
Temp Pulse Resp BP Pulse Ox
98.7 F 87 17 146/92 95
10/07/25 10:54 10/07/25 11:48 10/07/25 11:48 10/07/25 11:47 10/07/25 11:48
Lab Data
10/07/25 20:50
10/07/25 07:29
Diagnostic Testing:
Physical Exam
-
Exam:
Well-nourished and well-developed in no apparent distress
HEENT-atraumatic, normocephalic
Neck-supple, no JVD, no bruit
Heart-regular rate and rhythm-no murmurs, rubs or gallops
Chest-clear to auscultation, no wheezes, crackles
Back-no tenderness
Abdomen-soft, nontender, nondistended, no hepatosplenomegaly
Extremities-no cyanosis, clubbing, edema and good peripheral pulses
Integument-intact, no rashes, lesions or ecchymosis
Neurology-alert and oriented, nonfocal motor and sensory exam
Assessment
-
84-year-old nonsmoking female with history of CAD, hypertension, hyperlipidemia, anemia, lower GI bleed, TIA, who initially presented with hematemesis versus hemoptysis evaluated in the emergency room yesterday and then went home and returned's
morning with a couple more episodes of hemoptysis-small amounts of what sounds like old blood-last episode 5:30 AM-underwent EGD without gastrointestinal source-pulmonary consulted for hemoptysis 10/07/25.
Hemoptysis.
Possible hematemesis-negative EGD.
Mild hyperglycemia
Conditions present prior to admission:
CAD/Stents.
Hypertension.
Hyperlipidemia.
Hypothyroid.
TIA.
Osteoarthritis.
Cataract.
Lower GI bleed.
UTIs.
Anemia.
. Bilateral CEA. Hernia repair.
Plan
Etiology of mild to moderate amounts of hemoptysis in this lifelong nonsmoker without previous pulmonary conditions is unclear-she did complain of URI with vigorous coughing. [address] chest reviewed and no parenchymal abnormalities or no endobronchial abnormalities.
Admit for observation.
Quantify hemoptysis.
Consider bronchoscopy-this could be done in the outpatient setting if does not recur.
Nebulizers if needed-currently not bronchospastic.
GI evaluation noted-correspondence reviewed.
EGD negative.
DVT prophylaxis-mechanical.
Nutrition per gastroenterology.
Early mobilization.
Consider outpatient pulmonary evaluation if hemoptysis returns
Diagnostic data:
CT chest 10/06/25-no evidence for pulmonary embolism, clear lungs, no endobronchial abnormalities.
Echocardiogram 01/31/24-EF 55%, grade 1 diastolic dysfunction, mitral sclerosis with trace mitral regurgitation, PA systolic 38
Data Reviewed
-
EKG: Report reviewed by me
Radiology: Report reviewed by me
CT Scan: Image personally visualized and interpreted and Report reviewed by me
Medical Tests (Nuc Med, Echo etc): Report reviewed by me
Labs: Labs reviewed by me
Old Records: Reviewed
Total Time Spent with Patient (in minutes): 55
[2025-10-07 13:35] LABS: Hematocrit 36.8 % (37.0-47.0); Hemoglobin 12.1 g/dL (12.0-16.0)
[2025-10-07] MEDS: NSS 1000 IV (16:48)
[2025-10-07] MEDS: PROTONIX IV 40 MG IV (19:53)
[2025-10-07] MEDS: COREG 6.25 MG PO (19:53)
[2025-10-07] MEDS: NSS (PRESERVATIVE FREE) 10 ML IV (19:54)
[2025-10-07 20:20] LABS: Hematocrit 35.1 % (37.0-47.0); Hemoglobin 11.5 g/dL (12.0-16.0)
[2025-10-08] MEDS: NSS 1000 IV (02:23)
--- NOTE | 2025-10-08 04:15 | PTCARENOTE ---
Pt had an episode of coughing up bright red blood into basin and small amount into trash can at bedside. bp 138/69 HR 85. Pt denies pain or nausea just feels 'wiped out after coughing' Blood work completed.
[2025-10-08 04:17] VITALS: BP 138/69
[2025-10-08 04:42] LABS: Hematocrit 35.5 % (37.0-47.0); Hemoglobin 11.3 g/dL (12.0-16.0); Mean Corp Hgb Conc. 31.8 g/dL (33.0-37.0); Mean Corpuscular Volume 97.8 fL (81.0-99.0); Nucleated Red Blood Cells % 0 %; Platelet Count 242 10^3/uL (130-400); Red Cell Dist. Width 13.6 % (11.5-14.5)
[2025-10-08 04:44] LABS: INR 1.01; PT 13.4 Sec (11.4-14.6)
[2025-10-08 04:45] LABS: APTT 32.6 Sec (23.4-35.0)
[2025-10-08 05:00] LABS: ALT (SGPT) 14 U/L (0-35); AST (SGOT) 22 U/L (14-36); Albumin 3.5 g/dl (3.5-5.0); Alkaline Phosphatase 81 U/L (38-126); Blood Urea Nitrogen 18 mg/dl (7-17); Calcium 8.8 mg/dl (8.4-10.2); Carbon Dioxide 27 mmol/L (22-30); Chloride 105 mmol/L (98-107); Estimated Creatinine Clearance 46 ml/min; Glucose 111 mg/dl (70-99); Potassium 4.5 mmol/L (3.5-5.1); Sodium 136 mmol/L (135-145); Total Protein 6.3 g/dl (6.3-8.2); eGFR 55.55
[2025-10-08 06:00] VITALS: BMI 28.7
--- NOTE | 2025-10-08 07:16 | W.PN.HOSP.TC ---
Today's Communication/Plan
-
Antiplatelets on hold
Recommended to follow-up with rehabilitation program manager for future bronchoscopy outpatient
Follow-up with PCP within a week of discharge for CBC
If there is new concern for bleeding immediately readmit to ER.
Assessment / Plan
Assessment / Plan
84-year-old female with past medical history of CHFpEF, CAD s/p PCI x 2, PAD s/p bilateral CEA, Hypertension, Hyperlipidemia, chronic anemia, h/o Transient ischemic attack, previous lower GI bleeding - diverticular bleed in the past, last
colonoscopy in 2019. Currently she denies any chest pain or shortness of breath.presenting back to the emergency department after being evaluated overnight for reported hemoptysis, had a negative workup including normal labs and CTA PE study, went
home and drank a little bit of water and shortly after drinking the water has had persistent hematemesis which is what prompted daughter to bring patient back to the ER.
# Hemoptysis:
Today morning patient around 4 AM had 1 episode of hematemesis and tray had a bright red blood of movement with small clots.
Initially that is a concern for hematemesis however upper GI endoscopy with normal finding and rehabilitation program manager consultation probably it is hemoptysis and recommended for outpatient follow-up for future bronchoscopy.
Currently on hold for antiplatelets.
Will call the patient's vascular surgeon, PCP to discuss regards her antiplatelets hold.
Orthostatic vitals: No orthostatic hypotension
I/O 1260/4
On examination: Lungs are clear heart rate rhythm normal, abdomen soft nontender, no pedal edema.
Labs: WBC 6.7, hemoglobin 11.5--11.3 (baseline 12.1), blood glucose 111 high.
Currently patient receiving IV fluids but given the high blood pressure will try to wean off IV fluids and patient ordered breakfast.
Currently on IV pantoprazole 40 mg twice daily
Gastro endoscopy findings includes 10/07:
Small amount of blood in the hypopharynx, though no blood seen in the GI.
Mild Schatzki ring
Medium sized hiatal hernia
Duodenal erosion without bleed.
Dark Room Attendant consulted with recommendation
Admit for observation.
Quantify hemoptysis.
Consider bronchoscopy-this could be done in the outpatient setting if does not recur.
Nebulizers if needed-currently not bronchospastic.
GI evaluation noted-correspondence reviewed.
EGD negative.
DVT prophylaxis: SCD
Disposition Home
Full code
Anticipated Discharge: Today
Subjective/Interval History
-
Date of Service: October 08, 2025
Overnight patient blood pressure around 165/91, currently receiving lisinopril 5 mg, carvedilol 6.25 mg twice daily, OR 91, temp 98.4, saturation 96 with 2 L of nasal cannula.
Today morning she had hematemesis with bright red color on the tray it was the running went for the prerounds. Patient is daughter recommend at the bedside. However she denied abdominal pain, chest pain palpitation dizziness.
currently on hold for antiplatelet includes aspirin 81 mg, clopidogrel 75 mg.
Objective Data
-
Labs:
Laboratory Results
10/07/25 10/08/25 10/08/25
20:08 04:24 04:24
WBC 6.7
Hgb 11.5 L 11.3 L Cancelled
Hct 35.1 L 35.5 L
Plt Count
PT
INR
APTT
Sodium
Potassium
Chloride
Carbon Dioxide
BUN
Creatinine
Glucose
Calcium
Total Bilirubin
AST
ALT
Alkaline Phosphatase
10/08/25
04:24
WBC
Hgb
Hct Cancelled
Plt Count 242
PT 13.4
INR 1.01
APTT 32.6
Sodium 136
Potassium 4.5
Chloride 105
Carbon Dioxide 27
BUN 18 H
Creatinine 1.0
Glucose 111 H
Calcium 8.8
Total Bilirubin 0.4
AST 22
ALT 14
Alkaline Phosphatase 81
Vital Signs:
Vital Signs
Temp Pulse Resp BP Pulse Ox
98.9 F 85 18 138/69 93
10/07/25 23:12 10/08/25 04:17 10/07/25 23:12 10/08/25 04:17 10/07/25 23:12
I&O
10/07/25 10/08/25 10/09/25
06:59 06:59 06:59
Intake Total 1260 / 1260
Balance 1260 / 1260
Review of Systems
-
History Source: Patient
All other systems: Reviewed and negative
Physical Exam
-
General: No Apparent Distress
Respiratory: Clear to Auscultation
Cardiac: Regular Rhythm and S1/S2
GI: Soft and Nontender
Genito-urinary: No Costovertebral Tender
Musculoskeletal: No Clubbing, No Cyanosis and No Edema
Skin: Warm
Neuro: AO x 3
Hematologic / Lymphatic: No Lymphadenopathy
Psych: Calm
[2025-10-08 07:46] VITALS: BP 134/69
[2025-10-08] MEDS: NSS IV (07:55)
[2025-10-08] MEDS: LASIX 10 MG PO (07:56)
[2025-10-08] MEDS: MAGNESIUM OXIDE 400 MG PO (07:57)
[2025-10-08] MEDS: THERAGRAN 1 TABLET PO (07:57)
[2025-10-08] MEDS: LMX 4 1 APPLIC TOPICAL (07:57)
[2025-10-08] MEDS: COREG 6.25 MG PO (07:57)
[2025-10-08] MEDS: ZESTRIL 5 MG PO (07:57)
[2025-10-08] MEDS: NSS (PRESERVATIVE FREE) 10 ML IV (07:58)
[2025-10-08] MEDS: PROTONIX IV 40 MG IV (07:59)
[2025-10-08 09:30] VITALS: BP 125/63; BP 134/69; BP 162/80; PULSE 83; PULSE 84; PULSE 93
--- NOTE | 2025-10-08 10:52 | W.PN.PUL.V3 ---
Today's Communication / Plan
-
Quantify hemoptysis.
CT chest reviewed-lungs clear, no airway obstruction.
Outpatient pulmonary evaluation including consideration towards bronchoscopy if hemoptysis persists
Assessment
-
84-year-old nonsmoking female with history of CAD, hypertension, hyperlipidemia, anemia, lower GI bleed, TIA, who initially presented with hematemesis versus hemoptysis evaluated in the emergency room yesterday and then went home and returned's
morning with a couple more episodes of hemoptysis-small amounts of what sounds like old blood-last episode 5:30 AM-underwent EGD without gastrointestinal source-pulmonary consulted for hemoptysis 10/07/25.
Hemoptysis.
Possible hematemesis-negative EGD.
Mild hyperglycemia
Conditions present prior to admission:
CAD/Stents.
Hypertension.
Hyperlipidemia.
Hypothyroid.
TIA.
Osteoarthritis.
Cataract.
Lower GI bleed.
UTIs.
Anemia.
. Bilateral CEA. Hernia repair.
Plan
Etiology of mild to moderate amounts of hemoptysis in this lifelong nonsmoker without previous pulmonary conditions is unclear-she did complain of URI with vigorous coughing. [address] chest reviewed and no parenchymal abnormalities or no endobronchial abnormalities.
Overall hemoptysis has decreased-1 additional episode at 4 AM
Continue to quantify hemoptysis
Consider bronchoscopy-this could be done in the outpatient setting if does not recur.
Nebulizers if needed-currently not bronchospastic.
If okay with vascular surgery and cardiology consider decreasing or holding aspirin/Plavix
GI evaluation noted-correspondence reviewed.
EGD negative.
DVT prophylaxis-mechanical.
Nutrition per gastroenterology.
Early mobilization
Reviewed with primary team.
Reviewed with daughter at bedside
Outpatient pulmonary evaluation if hemoptysis returns-consider outpatient bronchoscopy
Diagnostic data:
CT chest 10/06/25-no evidence for pulmonary embolism, clear lungs, no endobronchial abnormalities.
Echocardiogram 01/31/24-EF 55%, grade 1 diastolic dysfunction, mitral sclerosis with trace mitral regurgitation, PA systolic 38
Subjective Data
-
Date of Service:
Date of Service: October 08, 2025
Chief Complaint: Pulmonary Follow Up and Dyspnea Follow Up
Subjective:
One more episode of hemoptysis at 4 AM, moderate amount, none since, no chest pain,
Review of Systems
General: Other ( per HPI)
Objective Data
Data Reviewed
Vital Signs / I&O:
Vital Signs
Temp Pulse Resp BP Pulse Ox
98.4 F 91 17 165/91 95
10/08/25 07:46 10/08/25 07:56 10/08/25 07:46 10/08/25 07:56 10/08/25 09:35
Intake and Output
10/07/25 10/08/25 10/09/25
06:59 06:59 06:59
Intake Total 1260 / 1260
Balance 1260 / 1260
SaO2: 95
Physical Exam
General: Respiratory Distress (n) and Comfortable
HEENT: Normocephalic, Anicteric and Moist Mucous Membranes
Cardiovascular: Regular Rhythm
Respiratory: Wheeze (n), Crackles (n), Rhonchi (n), Non-Labored Respirations, Accessory Resp Muscle Use (n) and Stridor (n)
GI: Soft, Non Distended and Non Tender
Neurology: Awake, Alert and No Motor Deficits
Skin: Warm, Good Color, Cyanosis (n), Jaundice (n) and Rash (nn)
Labs/Micro/Reports
Lab Data
10/08/25 04:24
10/08/25 04:24
Laboratory Results
10/08/25
04:24
PT 13.4
INR 1.01
APTT 32.6
[2025-10-08 13:15] VITALS: BP 109/66
== END 2025-10-08 13:21 | disposition home or self-care (01) | DRG 204 ==
LOC: 2 SOUTH 09:08
PROVIDERS: Physician Assistant Medical; Student in an Organized Health Care Education/Training Program; ADMITTING PHYSICIAN Internal Medicine; CONSULT PHYSICIAN Internal Medicine Critical Care Medicine; CONSULT PHYSICIAN Internal Medicine Gastroenterology; EMERGENCY PHYSICIAN Emergency Medicine; FAMILY PHYSICIAN Nurse Practitioner Family
PROC: 0DJ08ZZ Inspection of Upper Intestinal Tract, Via Natural or Artificial Opening Endoscopic (ICD-10-PCS; 2025-10-07)
DX: R04.2 Hemoptysis (principal); I50.32 Chronic diastolic (congestive) heart failure; I25.10 Atherosclerotic heart disease of native coronary artery without angina pectoris; Z95.5 Presence of coronary angioplasty implant and graft; I11.0 Hypertensive heart disease with heart failure; D64.9 Anemia, unspecified; Z86.73 Personal history of transient ischemic attack (TIA), and cerebral infarction without residual deficits; E03.9 Hypothyroidism, unspecified; I25.2 Old myocardial infarction; E66.9 Obesity, unspecified; Z68.28 Body mass index [BMI] 28.0-28.9, adult; K26.9 Duodenal ulcer, unspecified as acute or chronic, without hemorrhage or perforation; K22.2 Esophageal obstruction; K44.9 Diaphragmatic hernia without obstruction or gangrene; E78.00 Pure hypercholesterolemia, unspecified; K57.30 Diverticulosis of large intestine without perforation or abscess without bleeding; Z79.02 Long term (current) use of antithrombotics/antiplatelets; Z79.82 Long term (current) use of aspirin; Z79.899 Other long term (current) drug therapy
CPT/HCPCS: 71275; 80053; 85014; 85018; 85025; 85610; 85730; 86850; 86900; 86901; 93005; 96374; 99284; Q9967